=== PATIENT | female | born 2000 | race Hispanic/Latino ===

== ENCOUNTER 2024-01-05 21:03 | Emergency (ER) | payer BC, MEDICAID ==
[~2024-01-05] VITALS: Ht 160 cm; Wt 54.4 kg
[2024-01-05 21:09] VITALS: BP 114/69; PULSE 85; RESP 18; O2SAT 100
[2024-01-05] MEDS ORDERED: HYDR100C2 PO (21:24)
== END 2024-01-05 21:30 | disposition home or self-care (01) ==
LOC: EDH 21:03
DX: G47.00 Insomnia, unspecified (principal)

== ENCOUNTER 2024-12-27 15:23 | Emergency (ER) | payer BC ==
[~2024-12-27] VITALS: Ht 160 cm; Wt 68.0 kg
[~2024-12-27 15:23] MED LIST: HYDR100C2 PO
--- NOTE | 2024-12-27 15:38 | ERN ---
ED Note History of Present Illness Stated Complaint: RECTAL BLEED X2 MONTHS Chief Complaint: Rectal Bleed Time Seen by MD: 15:25 Dictation: PATIENT IS A 23-YEAR-OLD FEMALE COMING IN TODAY WITH COMPLAINTS OF RECTAL BLEEDING OFF AND ON FOR THE LAST TWO MONTHS. SHE STATES SHE NOTICED SOME BLEEDING WHEN SHE WAS WIPING HERSELF TWO MONTHS AGO, DID NOT THINK ANYTHING OF IT. SHE SAID THEN SEVERAL DAYS AGO SHE HAD FOOD POISONING AND HAD DIARRHEA. SHE SAID AFTER THAT SHE HAS NOTICED THE BLEEDING AGAIN. SHE STATES IT IS MORE ON THE TOILET PAPER. DENIES ANY HISTORY OF RECTAL PAIN ANAL SEX IBS CROHN'S DISEASE. NO PRIMARY CARE DOCTOR Allergies: Coded Allergies: No Known Allergies (Unverified Allergy, Unknown, 01/05/24) Home Meds Active Scripts Hydroxyzine Pamoate (Hydroxyzine Pamoate) 100 Mg Capsule, 100 MG PO AD, #30 CAP 1 capsule p.o. nightly as needed insomnia on empty stomach. Do not drive or operate machinery under the influence of this medication Prov:JACKY SOTO MEDICAL STAFF MANAGER 01/05/24 Past Medical History Past Medical History: Other Additional Past Medical Hx: INSOMNIA Surgical History: Other Surgical History Other: ORAL History: Not Applicable RN Note Reviewed/Agreed w/PFSH: Yes Review of System Dictation CONSTITUTIONAL: NEGATIVE EXCEPT FOR HPI HEAD/FACE: NEGATIVE EXCEPT FOR HPI EENT: NEGATIVE EXCEPT FOR HPI RESPIRATORY: NEGATIVE EXCEPT FOR HPI GASTROINTESTINAL/ABDOMINAL: NEGATIVE EXCEPT FOR HPI RECTAL BLEED GENITOURINARY: NEGATIVE EXCEPT FOR HPI MUSCULOSKELETAL: NEGATIVE EXCEPT FOR HPI INTEGUMENTARY: NEGATIVE EXCEPT FOR HPI NEUROLOGICAL/PSYCH: NEGATIVE EXCEPT FOR HPI HEMATOLOGIC/LYMPHATIC: NEGATIVE EXCEPT FOR HPI ALL SYSTEMS NEGATIVE, EXCEPT NOTED ABOVE. 13 POINT REVIEW OF SYSTEMS ASSESSED AND ALL NEGATIVE EXCEPT FOR ABOVE. Initial Vital Sign VS Vital Signs Date Time Temp Pulse Resp B/P (MAP) Pulse Ox O2 Delivery O2 Flow Rate FiO2 12/27/24 15:23 97.9 102 14 109/60 95 Room Air 0 12/27/24 15:45 21 Physical Exam Dictation VITAL SIGNS REVIEWED GENERAL APPEARANCE: ALERT, ORIENTED X 3, NO ACUTE DISTRESS, WELL DEVELOPED, NOURISHED. HEAD AND FACE: NON-TRAUMATIC. EYES: PERRL, PINK CONJUNCTIVAS, EYELID NO TRAUMA, ANTERIOR CHAMBER WITH ARCUS SENILIS. EARS: PINNAS INTACT AND NO SIGNS OF TRAUMA OR ERYTHEMA EAR CANALS CLEAR AND NO DISCHARGE TM NO ERYTHEMA NOSE: NO DISCHARGE, NO BLEEDING. OROPHARYNX: MOUTH NORMAL, TONGUE PINK, PHARYNX CLEAR,NO ERYTHEMA, TONSILS NO EXUDATES, NO ABSCESSES NOTED, MUCOUS MEMBRANE MOIST NECK: SUPPLE, NON-TENDER, NO THYROMEGALY, NO MASSES, NO JVD, NO BRUITS BREAST:DEFERRED CHEST:NO TENDERNESS, NO CREPITUS, NO PARADOXICAL MOVEMENT, NO RETRACTIONS LUNGS:CLEAR, WELL-VENTILATED, SYMMETRIC, NO RALES, NO WHEEZING, NO RHONCHI, NO STRIDOR, GOOD BREATH SOUNDS BILATERALLY HEART: REGULAR RATE, REGULAR RHYTHM, NO MURMUR, NO GALLOPS VASCULAR: NO PERIPHERAL EDEMA, ABDOMEN: SOFT, POSITIVE BOWEL SOUNDS, NONDISTENDED, NO GUARDING, NONTENDER, NO REBOUND, NO MASSES NO HEPATOMEGALY, NO SPLENOMEGALY, NO CHOWDHURY'S SIGN, NO HERNIAS. RECTAL: DEFERRED GENITAL: DEFERRED NEUROLOGICAL: NORMAL SPEECH, MOTOR FUNCTION INTACT, SENSORY FUNCTION INTACT MUSCULOSKELETAL: NECK NONTENDER, FULL RANGE OF MOTION, BACK NONTENDER, FULL RANGE OF MOTION, EXTREMITIES: NONTENDER, FULL RANGE OF MOTION SKIN: COLOR PINK, DRY, NO TURGOR, NO RASH, NO LACERATIONS, NO ABRASIONS, NO CONTUSIONS. LYMPHATIC: DEFERRED Results (Laboratory/Radiology) Laboratory/Radiology Laboratory Tests Test 12/27/24 16:16 White Blood Count 9.1 K/uL (4.8-10.8) Red Blood Count 3.91 MIL/uL (4.00-5.50) L Hemoglobin 11.9 g/dL (12.0-16.0) L Hematocrit 35.7 % (36-48) L Mean Corpuscular Volume 91.3 fL (79-99) Mean Corpuscular Hemoglobin 30.4 pg (27.0-33.0) Mean Corpuscular Hemoglobin Concent 33.3 g/dL (32.0-36.0) Red Cell Distribution Width 13.0 % (11.0-15.5) Platelet Count 366 K/uL (130-400) Mean Platelet Volume 9.4 fL (7.5-10.5) Immature Granulocyte % (Auto) 0.8 % (0-1) Neutrophils (%) (Auto) 61.2 % (40.0-77.0) Lymphocytes (%) (Auto) 31.3 % (21.0-51.0) Monocytes (%) (Auto) 4.2 % (3.0-13.0) Eosinophils (%) (Auto) 2.0 % (0.0-8.0) Basophils (%) (Auto) 0.5 % (0.0-5.0) Neutrophils # (Auto) 5.6 K/uL (1.8-7.7) Lymphocytes # (Auto) 2.9 K/uL (1.0-4.8) Monocytes # (Auto) 0.4 K/uL (0.1-1.0) Eosinophils # (Auto) 0.18 K/uL (0.00-0.70) Basophils # (Auto) 0.05 K/uL (0.00-0.20) Absolute Immature Granulocyte (auto 0.07 K/uL (0-1) Nucleated Red Blood Cells 0.0 % (0.0-0.19) Sodium Level 136 mmol/L (136-145) Potassium Level 3.8 mmol/L (3.5-5.1) Chloride Level 104 mmol/L (101-111) Carbon Dioxide Level 27 mmol/L (21-32) Blood Urea Nitrogen 14 mg/dL (7-18) Creatinine 0.7 mg/dL (0.5-1.0) Glomerular Filtration Rate Calc 125 mL/min (>90) Random Glucose 136 mg/dL (70-105) H Total Calcium 9.2 mg/dL (8.5-10.1) Lipase 54 U/L (16-77) Labs Reviewed?: Yes ED Course ED Course Orders Procedure Category Date Status Time Cbc With Differential LAB 12/27/24 Complete 15:36 Lipase LAB 12/27/24 Complete 15:36 Basic Metabolic Panel LAB 12/27/24 Complete 15:36 Vital Signs Date Time Temp Pulse Resp B/P (MAP) Pulse Ox O2 Delivery O2 Flow Rate FiO2 12/27/24 17:19 97.0 94 20 107/71 98 Room Air* 0 21 12/27/24 15:45 97.9 93 18 106/74 98 Room Air* 0 21 12/27/24 15:23 97.9 102 14 109/60 95 Room Air 0 /PATIENT REFUSED RECTAL EXAM. PATIENT IS HEMODYNAMICALLY STABLE. PATIENT WILL BE REFERRED TO DR. MAMADOU Vasquez FOR FOLLOW UP. Medical Decision Making MDM MEDICAL DISCHARGE MAKING BASED ON BASIC LABS. ALL LABS UNREMARKABLE NO PRIOR LABS TO COMPARE. PATIENT REFUSED RECTAL EXAM. DISCHARGED HOME TO FOLLOW UP WITH DR. MCDANIEL/[facility] & DISP Disposition: Discharge Departure Impression: Primary Impression: Rectal bleed Condition: Stable Additional Instructions: FOLLOW-UP WITH PRIMARY CARE PROVIDER IN 1 TO 2 DAYS. TAKE MEDICATIONS DIRECTED HERE IN THE EMERGENCY ROOM. OKAY TO CONTINUE HOME MEDICATIONS UNLESS OTHERWISE DISCUSSED DURING YOUR VISIT IN THE EMERGENCY ROOM TODAY. RETURN TO YOUR NEAREST EMERGENCY ROOM IF SYMPTOMS WORSEN OR IF THERE IS NO IMPROVEMENT. CALL 911 IF YOU NEED IMMEDIATE ASSISTANCE. TAKE TYLENOL OR MOTRIN OVER-THE- COUNTER NEEDED AND IF NO CONTRAINDICATIONS ARE PRESENT. INCREASE ORAL HYDRATION. A WOUND CULTURE OR URINE CULTURE WAS ORDERED HERE IN THE EMERGENCY ROOM DEPARTMENT PLEASE FOLLOW-UP WITH PRIMARY CARE PROVIDER AND ADVISE THEM TO GET REPEAT PORTS FROM OUR FACILITY. IF YOU HAD ANY DELMI WRAP/SPLINTS THAT WERE APPLIED HERE, PLEASE DO NOT REMOVE THEM UNTIL YOU SEE YOUR PRIMARY CARE OR SPECIALTY. SUGGEST A HIGH-FIBER DIET, METAMUCIL [id number] TWICE A DAY. CALL [facility] ANALY[facility] FOR APPOINTMENT IN NEXT 1-2 DAYS. Referrals: NONE (PCP) THEE WALTERS MD Time of Disposition: 17:10 I have reviewed the case, and I agree with, Diagnosis and Plan JACKY SOTO NP Dec 27, 2024 15:38 FLAKO DEL CID DO Dec 27, 2024 17:53
[2024-12-27 16:36] LABS: BASOPHILS # (AUTO) 0.05 K/uL (0.00-0.20); BASOPHILS % (AUTO) 0.5 % (0.0-5.0); EOSINOPHILS # (AUTO) 0.18 K/uL (0.00-0.70); HEMATOCRIT 35.7 % (36-48); IMMATURE GRANULOCYTE ABSOLUTE 0.07 K/uL (0-1); LYMPHOCYTES # (AUTO) 2.9 K/uL (1.0-4.8); LYMPHOCYTES % (AUTO) 31.3 % (21.0-51.0); MEAN CORPUSCULAR HEMOGLOBIN 30.4 pg (27.0-33.0); MEAN CORPUSCULAR HGB CONC 33.3 g/dL (32.0-36.0); MEAN CORPUSCULAR VOLUME 91.3 fL (79-99); MONOCYTES # (AUTO) 0.4 K/uL (0.1-1.0); MONOCYTES % (AUTO) 4.2 % (3.0-13.0); NEUTROPHILS # (AUTO) 5.6 K/uL (1.8-7.7); NEUTROPHILS % (AUTO) 61.2 % (40.0-77.0); PLATELET COUNT (AUTO) 366 K/uL (130-400); RED BLOOD CELL COUNT(AUTO) 3.91 MIL/uL (4.00-5.50); WHITE BLOOD COUNT (AUTO) 9.1 K/uL (4.8-10.8)
[2024-12-27 16:43] LABS: CREATININE 0.7 mg/dL (0.5-1.0); POTASSIUM 3.8 mmol/L (3.5-5.1)
[2024-12-27 17:19] VITALS: BP 107/71; PULSE 94; RESP 20; TEMP 97; O2SAT 98
== END 2024-12-27 17:20 | disposition home or self-care (01) ==
LOC: EDH 15:23
DX: K62.5 Hemorrhage of anus and rectum (principal); Z98.890 Other specified postprocedural states
CPT/HCPCS: 36415; 80048; 83690; 85025; 99283